=== PATIENT | female | born 1965 | race Caucasian/White ===

== ENCOUNTER 2020-12-29 15:28 | Emergency (ER) | payer SELFPAY ==
[2020-12-29 15:59] VITALS: BP 142/79; PULSE 80; RESP 24; TEMP 36.6; O2SAT 98; BMI 26.9
== END 2020-12-29 21:52 | disposition left against medical advice (07) ==
PROVIDERS: Emergency Provider Emergency Medicine
DX: R10.32 Left lower quadrant pain (principal)
CPT/HCPCS: 99281; 99282

== ENCOUNTER 2022-02-05 16:33 | Emergency (ER) | payer BC, SELFPAY ==
[2022-02-05 16:48] VITALS: BP 124/82; PULSE 112; O2SAT 98
[2022-02-05 16:52] VITALS: BP 105/88; PULSE 109; RESP 24; TEMP 38.1; O2SAT 99; BMI 22.9
--- NOTE | 2022-02-05 17:01 | ED_ITS ---
HPI - Nausea/Vomiting/Diarrhea General Chief complaint: Upper Respiratory Symptoms Stated complaint: N/V/D,CHILLS,FEVER PER EMS Time Seen by Provider: 02/05/22 16:46 Source: patient and EMS Mode of arrival: EMS Limitations: no limitations History of Present Illness HPI Narrative: 56 y/o female presents to the ER c/o body aches, nausea, vomiting, headaches and not feeling good for the last 1 day. She states she was around her daughter on [place] who was found to have COVID. Patient vaccinated for COVID but not boosted. She has minimal respiratory symptoms, just a mild dry cough. She reports severe nausea today and a few episodes of vomiting. No BM today but had loose stools yesterday. No abdominal pain. Intermittent fevers, last took tylenol this morning. MD elicited complaint: nausea, vomiting and other (bodyaches and headaches) Onset (ago): day(s) (1) Description of vomiting: food contents and bilious Description of diarrhea: loose Associated nausea: Yes Associated abdominal pain: No Location of pain: none Pain consistency: intermittent Severity: moderate Quality: aching Exacerbating factors: eating Relieving factors: none Context: sick contacts Associated symptoms: myalgias, cough, diaphoresis, fever/chills, headaches, loss of appetite, malaise, nausea/vomiting, weakness, anxiety and fatigue Related Data Previous Rx's Medication Instructions Recorded ibuprofen 600 mg tablet 600 mg PO Q8H PRN fever or pain 02/05/22 #20 tabs ondansetron 4 mg disintegrating 4 mg PO Q8H PRN nausea and 02/05/22 tablet vomiting 3 days #10 tabs Allergies Allergy/AdvReac Type Severity Reaction Status Date / Time latex Allergy Rash Verified 12/29/20 16:03 Review of Systems Review of Systems: Constitutional: + Fever, + Chills ENT/Mouth: No sore throat, No Rhinorrhea, No Swallowing Difficulty Eyes: No Eye Pain, No Swelling, No Redness Cardiovascular: No Chest Pain, No SOB, No Orthopnea, No Edema Respiratory: + Cough, No Sputum, No Wheezing, No dyspnea Gastrointestinal: + Nausea, +Vomiting, + Diarrhea, No abdominal Pain, No Hematochezia, No Melena Genitourinary: No Dysuria, No Urinary Frequency, No Hematuria Musculoskeletal: + joint pain, +Myalgias Skin: No Skin Lesions, No rash Neuro: +Weakness, No Numbness, No Dizziness, + Headache Psych: + Anxiety/Panic, No Depression Heme/Lymph: No Bruising, No Lymphadenopathy Gastrointestinal: Gastrointestinal: Reports nausea PMFSH Social History Social History Advance Directives: No Advance Directives Information Provided: No Physical Exam Vital Signs: Vital Signs: Last Vital Signs Temp 100.6 F H 02/05/22 16:52 Pulse 109 H 02/05/22 16:52 Resp 24 H 02/05/22 16:52 BP 105/88 02/05/22 16:52 Pulse Ox 99 02/05/22 16:52 O2 Del Method 02/05/22 16:52 BMI result Body Mass Index 22.9 Appearance: Alert. Oriented X3. No acute distress. Eyes: Pupils equal, round and reactive to light. ENT: Pharynx normal. Neck: Normal inspection. Neck supple. CVS: Normal heart rate and rhythm. Pulses normal. Respiratory: No respiratory distress. Breath sounds normal. Abdomen: Soft and nontender. +BS x4 Skin: Skin warm and dry. Normal skin color. Normal skin turgor. No rashes. Extremities: No lower extremity edema. Neuro: Oriented X 3. Nonfocal. Normal speech and cognition. Course Course Course Narrative: 56-year-old female presents to the ER for evaluation of nausea, vomiting, diarrhea, body aches, headache that started yesterday after known COVID exposure 2 days ago. She rib to the ER with a low-grade fever, tachycardic and slightly tachypneic but in no respiratory distress. Most likely driven by the fever. Last got antipyretics this morning. Will place an IV, give IV Toradol, IV fluids, check basic lab workup and PCR viral swab. Reevaluation(s) Reevaluation #1: Lab workup showing WBC 12.5, most likely reactive due to vomiting. Lab workup otherwise unremarkable. She did, 2 positive for COVID-19. She is feeling better after the Zofran. She is tolerating ice chips. No respiratory complaints at this time. Anticipate discharge home with supportive care. Reevaluation #2: Tolerating p.o.. Would like to go home. Stable for OK home. Return precau tions discussed. Medications Administered Discontinued Medications Generic Name Dose Route Start Last Admin Trade Name Freq PRN Reason Stop Dose Admin Acetaminophen 975 mg 02/05/22 18:07 02/05/22 18:24 Acetaminophen 325 Mg Tablet PO 02/05/22 18:08 975 mg ONCE ONE Administration Sodium Chloride 1,000 mls @ 999 mls/hr 02/05/22 16:45 02/05/22 17:21 Ns IVCONT 02/05/22 17:45 999 mls/hr .Q1H1M GORDON Administration Ketorolac Tromethamine 30 mg 02/05/22 16:50 02/05/22 17:16 Ketorolac Tromethamine 30 Mg/Ml Vial IVPUSH 02/05/22 16:51 30 mg ONCE ONE Administration Ondansetron HCl 4 mg 02/05/22 17:03 02/05/22 17:18 Ondansetron Odt 4 Mg Tab.Rapdis TRANSLINGU 02/05/22 17:04 4 mg ONCE ONE Administration Medical Decision Making Lab Data Result Diagrams: 02/05/22 17:08 02/05/22 17:08 Labs: Lab Results 02/05/22 02/05/22 02/05/22 Range/Units 17:08 17:08 17:10 WBC 12.5 H (4.8-10.8) X10*3/uL RBC 4.14 L (4.20-5.50) X10*6/uL Hgb 12.7 (12.0-16.0) g/dl Hct 38.1 (37.0-47.0) % MCV 92.0 (80.0-98.0) fL MCH 30.7 (27.0-33.0) pg MCHC 33.3 (31.0-35.0) g/dl RDW 12.6 (11.0-16.0) % Plt Count 265 (160-400) X10*3/uL MPV 9.7 (9.4-12.3) fL Immature Gran % (Auto) 0.4 (0.0-0.4) % Neut % (Auto) 90.6 H (45-73) % Lymph % (Auto) 3.3 L (20-40) % [place] % (Auto) 4.9 (2-11) % Eos % (Auto) 0.6 (0-4) % Baso % (Auto) 0.2 (0-2) % Lymph # (Auto) 0.4 L (1.2-4.9) X10*3/uL [place] # (Auto) 0.6 (0.1-1.2) X10*3/uL Eos # (Auto) 0.1 (0.0-0.4) X10*3/uL Baso # (Auto) 0.0 (0.0-0.2) X10*3/uL Abs Immat Gran (auto) 0.05 H (0.00-0.03) X10*3/uL Absolute Neuts (auto) 11.3 H (2.0-8.3) x10*3/uL Absolute Nucleated RBC 0.000 (0.0-0.012) X10*3/uL Nucleated RBC % (auto) 0.0 (0.0-0.2) /100WBC Smear Tech's Comments VERIFIED Sodium 137 (135-145) mmol/L Potassium 4.0 (3.3-5.1) mmol/L Chloride 103 (96-108) mmol/L Carbon Dioxide 26 (22-29) mmol/L Anion Gap 12 (12-20) BUN 9 (9-16) mg/dL Creatinine 0.76 (0.5-1.4) mg/dL Estim Creat Clear Calc 89.3 Estimated GFR > 60 Random Glucose 110 (60-115) mg/dL Calcium 9.8 (8.4-10.2) mg/dL Magnesium 1.6 (1.6-2.6) mg/dL Total Bilirubin 0.3 (0.0-1.0) mg/dL Direct Bilirubin < 0.2 (0.0-0.5) mg/dL AST 18 (5-31) U/L ALT 22 (0-31) U/L Alkaline Phosphatase 76 (39-117) U/L Total Protein 6.9 (6.5-8.0) g/dL Albumin 4.2 (3.5-5.0) g/dL Influenza Type A (PCR) NEGATIVE (Negative) Influenza Type B (PCR) NEGATIVE (Negative) RSV RNA Qual (PCR) NEGATIVE (Negative) SARS-CoV-2 RNA (RT-PCR) POSITIVE A (Negative) Discharge Plan Discharge Clinical Impression: COVID-19 Patient Disposition: Home, Self-Care Instructions: Covid-19 Viral Syndrome and Novel Coronavirus (ED) Hey/Ath Additional Instructions: You tested positive for COVID-19 today. Your lab work was otherwise largely unremarkable. Take the prescribed medications as directed, as needed for your symptoms. Make sure staying hydrated and drinking plenty fluids. Recommend Tylenol 975 mg every 6 hours around the clock for headaches and body aches. Take [id number] cold and flu medications as needed for your other symptoms. Follow-up with your doctor as needed. If you develop new or worsening symptoms call 911 or come back to the ER for further evaluation. Prescriptions: New ibuprofen 600 mg tablet 600 mg PO Q8H PRN (Reason: fever or pain) Qty: 20 0RF ondansetron 4 mg tablet,disintegrating 4 mg PO Q8H PRN (Reason: nausea and vomiting) 3 Days Qty: 10 0RF
[2022-02-05] MEDS: Ketorolac Tromethamine 30 MG/ML VIAL IVPUSH (17:16)
[2022-02-05] MEDS: Ondansetron ODT 4 MG TAB.RAPDIS TRANSLINGU (17:18)
[2022-02-05] MEDS: 0.9 % Sodium Chloride 1,000 ML 999 ML IVCONT (17:21)
[2022-02-05 17:23] LABS: Basophils Percent Auto 0.2 % (0-2); Eosinophils Absolute Auto 0.1 X10*3/uL (0.0-0.4); Eosinophils Percent Auto 0.6 % (0-4); Hematocrit 38.1 % (37.0-47.0); Hemoglobin 12.7 g/dl (12.0-16.0); Imm Gran Abs Auto 0.05 X10*3/uL (0.00-0.03); Imm Gran Pct Auto 0.4 % (0.0-0.4); Lymphocytes Absolute Auto 0.4 X10*3/uL (1.2-4.9); Lymphocytes Percent Auto 3.3 % (20-40); MANUAL DIFF FLAG SCAN; Mean Corpuscular HGB Conc 33.3 g/dl (31.0-35.0); Mean Corpuscular Hemoglobin 30.7 pg (27.0-33.0); Mean Platelet Volume 9.7 fL (9.4-12.3); Monocytes Absolute Auto 0.6 X10*3/uL (0.1-1.2); Monocytes Percent Auto 4.9 % (2-11); Neutrophils Absolute Auto 11.3 x10*3/uL (2.0-8.3); Neutrophils Percent Auto 90.6 % (45-73); Platelet Count 265 X10*3/uL (160-400); Red Blood Count 4.14 X10*6/uL (4.20-5.50); Red Cell Distribution Width 12.6 % (11.0-16.0); SCAN SMEAR FLAG 1; White Blood Count 12.5 X10*3/uL (4.8-10.8)
[2022-02-05 17:44] LABS: Alanine Aminotransferase 22 U/L (0-31); Albumin Level 4.2 g/dL (3.5-5.0); Alkaline Phosphatase 76 U/L (39-117); Anion Gap 12 (12-20); Aspartate Amino Transferase 18 U/L (5-31); Bilirubin Direct < 0.2 mg/dL (0.0-0.5); Bilirubin Total 0.3 mg/dL (0.0-1.0); Blood Urea Nitrogen 9 mg/dL (9-16); Calcium 9.8 mg/dL (8.4-10.2); Carbon Dioxide 26 mmol/L (22-29); Chloride 103 mmol/L (96-108); Creatinine Clr Calc Pharmacy 89.3; Estimated Glomerular Filt Rate > 60; Glucose Random 110 mg/dL (60-115); Magnesium 1.6 mg/dL (1.6-2.6); SLIDE REVIEW VERIFIED; Sodium 137 mmol/L (135-145); Total Protein 6.9 g/dL (6.5-8.0)
[2022-02-05 18:03] LABS: Influenza A PCR NEGATIVE (Negative); Influenza B PCR NEGATIVE (Negative); Resp Syncy Virus RNA Qual PCR NEGATIVE (Negative); SARS COV2 PCR INHOUSE POSITIVE (Negative)
[2022-02-05] MEDS: Acetaminophen 325 MG TABLET 975 MG PO (18:24)
[2022-02-05 18:35] VITALS: BP 114/58; PULSE 99; O2SAT 96
== END 2022-02-05 18:58 | disposition home or self-care (01) ==
PROVIDERS: Physician Assistant; Emergency Provider Internal Medicine
DX: U07.1 COVID-19 (principal); R50.9 Fever, unspecified; M79.10 Myalgia, unspecified site; R51.9 Headache, unspecified; R05.9 Cough, unspecified; Z79.899 Other long term (current) drug therapy
CPT/HCPCS: 0241U; 36415; 80048; 80076; 83735; 85025; 96361; 96374; 99284; J1885

== ENCOUNTER 2022-05-02 15:07 | Emergency (ER) | payer BC, SELFPAY ==
--- NOTE | ~2022-05-02 | MR_ITS ---
EXAMINATION: MR BRAIN WITHOUT CONTRAST CLINICAL INFORMATION: Right-sided weakness. COMPARISON: CT head from 05/02/2022. TECHNIQUE: MRI of the brain was obtained using routine sequences without contrast. FINDINGS: No focal restricted diffusion is demonstrated to suggest acute or subacute cerebral ischemia. No evidence of acute or chronic hemorrhagic products on heme-sensitive imaging. Scattered periventricular and deep white matter T2 FLAIR hyperintensities most commonly seen with underlying microangiopathy. Proportional prominence of the ventricles and sulcal spaces without evidence of obstructive hydrocephalus. No abnormal mass effect. No midline shift. Normal appearance of the pituitary gland. Normal positioning of the cerebellar tonsils. Normal arterial and venous vascular flow voids are present. Normal, homogeneous marrow signal. Mild mucosal thickening of the paranasal sinuses. No signal abnormalities within the mastoids. MR/MR head/brain wo con IMPRESSION: 1. No acute intracranial abnormalities. 2. Nonspecific white matter changes most commonly seen with underlying microangiopathy.
--- NOTE | ~2022-05-02 | CT_ITS ---
EXAMINATION: CT HEAD WITHOUT CONTRAST (STROKE PROTOCOL) CLINICAL INFORMATION: Stroke protocol. Right-sided deficits COMPARISON: None available. TECHNIQUE: Contiguous axial imaging was performed from the skull base to vertex without intravenous administration of contrast. This CT examination was performed using dose optimization techniques as appropriate, variously including the following: *Automated exposure control *Adjustment of mA and/or kV according to patient size (this includes techniques or standardized protocols for targeted exams where dose is matched to indication/reason for exam; i.e. extremities or head) *Use of iterative reconstruction technique DLP: 657 mGy-cm FINDINGS: Brain: There is no acute intra-axial, extra-axial bleed, mass or midline shift. There is no acute infarction evolution. No edema. The lateral ventricles are symmetrical in size and configuration without enlargement. Bone windows reveal no calvarial abnormality. There is no scalp soft tissue abnormality. There is minimal mucoperiosteal thickening bilateral ethmoid sinuses. Rest of the paranasal sinuses are clear. CT/CT head for stroke IMPRESSION: 1. No acute intracranial process seen. 2. Chronic bilateral ethmoid sinus inflammatory changes. This critical result was discussed with Dr. Ventura at 3.53 pm . on 05/02/2022. It was ascertained that the content and urgency of the report was understood at the time of direct communication.
--- NOTE | 2022-05-02 15:18 | ECG_ITS ---
Test Reason : CHEST PAIN Blood Pressure : / mmHG Vent. Rate : 070 BPM Atrial Rate : 070 BPM P-R Int : 150 ms QRS Dur : 106 ms QT Int : 408 ms P-R-T Axes : 061 033 057 degrees QTc Int : 440 ms Normal sinus rhythm Incomplete right bundle branch block Septal infarct , age undetermined Abnormal ECG No previous ECGs available Referred By: Generic ED Physician Electronically Signed By:SYLVIA ALONSO MD
[2022-05-02 15:21] VITALS: BP 130/70; BP 147/86; PULSE 74; PULSE 90; RESP 18; TEMP 36.7; O2SAT 98; O2SAT 99; BMI 24.3
[2022-05-02 15:27] LABS: Glucose, Whole Blood 120 mg/dL (60-115)
--- NOTE | 2022-05-02 15:31 | ED.NEUROSD ---
HPI - Neuro Symptoms/Deficit General Chief Complaint: Dizziness Stated Complaint: CP ALL DAY WORSE AFTER ARGUEMENT Time Seen by Provider: 05/02/22 15:28 Source: patient Mode of arrival: EMS History of Present Illness HPI Narrative: 57F with history hypertension but otherwise denies alcohol or drug use. She is unsure of why her coworkers called and according to nursing and EMS it was because they noticed she was having difficulty with word finding. Apparently started with some headache in the posterior head and associated dizziness. Related Data Previous Rx's Medication Instructions Recorded ibuprofen 600 mg tablet 600 mg PO Q8H PRN fever or pain 02/05/22 #20 tabs ondansetron 4 mg disintegrating 4 mg PO Q8H PRN nausea and 02/05/22 tablet vomiting 3 days #10 tabs Allergies Allergy/AdvReac Type Severity Reaction Status Date / Time bee pollen [bee stings] Allergy Hives Verified 05/02/22 15:31 Iodinated Contrast Media Allergy Hives Verified 05/02/22 15:31 [Contrast Dye] latex Allergy Rash Verified 12/29/20 16:03 Review of Systems Review of Systems: Pertinent positives and negatives as stated in HPI [facility] Past Medical History Source: nursing notes reviewed Social History Social History Advance Directives: No Advance Directives Information Provided: Yes Physical Exam Vital Signs: Vital Signs: Last Vital Signs Temp 98.0 F 05/02/22 15:21 Pulse 65 05/02/22 17:01 Resp 12 05/02/22 17:01 BP 143/78 H 05/02/22 17:01 Pulse Ox 100 05/02/22 17:01 O2 Del Method Room Air 05/02/22 17:01 BMI result Body Mass Index 24.3 VITAL SIGNS: Reviewed. GENERAL: Well developed, well nourished, in no acute distress. HEAD: Normocephalic/atraumatic EYES: PERRLA, EOMI LUNGS: Normal breath sounds. No adventitious sounds or accessory muscle use. SpO2<99> CARDIOVASCULAR: Regular rate and rhythm without noted murmurs, no JVD or lower extremity edema. ABDOMEN: Soft, non-tender, non-distended with bowel sounds. MUSCULOSKELETAL: No tenderness, deformities, or effusions noted on gross inspection. EXTREMITIES: No cyanosis, clubbing or edema. SKIN: Inspection of the skin reveals no rashes NEUROLOGIC: Alert and oriented x 3. Please see NIH scale Medical Decision Making Medical Decision Making MDM Narrative: 57-year-old female not on anticoagulation presents with concerning symptoms for possible bleed, 1536: Dr Scott contacted and agrees that if appropriate pt will get tPA. 1539: Informed by radiology that patient has a contrast allergy. 1545: Discussed with Dr. Scott that patient is allergic to IV contrast, has improvement in her speech pattern and will hold off on the tPA and tell MRI of brain is complete. 1550: I spoke with patient who stated that she does feel somewhat better, she is noted to be articulating much better with full sentences has movement in all 4 extremities but reports ?tingling?. 1715: I reviewed the official MRI read which is negative for evidence to suggest CVA, on re-evaluation of the patient she states that she has had complete resolution of her symptoms, is unsure of what happened and is now complaining headache with some neck pain and back pain. NIH-0 Patient was not noted to be hypertensive on arrival and so cannot speculate that this contributed to her symptoms, I do suspect that given the final endorsement headache and tingling from toes to shoulders that this may have been a complex migraine manifestation. Patient denies any episodes of anxiety or panic disorder and also states that she has never had a migraine like this. 1735: I discussed the case once again with Neurology, Dr. Scott, and updated him on patient's symptom resolution/MRI results and he states that the tingling is primarily migraine or seizure. But agrees with further outpatient workup. Patient was informed of all results and will be discharged home with strict instructions follow-up with her primary care provider for further workup. Differential Diagnosis Please see the discussion above Lab Data Please see the discussion above 05/02/22 15:38 05/02/22 15:38 Labs: Lab Results 05/02/22 05/02/22 05/02/22 Range/Units 15:24 15:36 15:38 WBC 8.6 (4.8-10.8) X10*3/uL RBC 4.09 L (4.20-5.50) X10*6/uL Hgb 12.5 (12.0-16.0) g/dl Hct 37.4 (37.0-47.0) % MCV 91.4 (80.0-98.0) fL MCH 30.6 (27.0-33.0) pg MCHC 33.4 (31.0-35.0) g/dl RDW 13.5 (11.0-16.0) % Plt Count 330 (160-400) X10*3/uL MPV 9.7 (9.4-12.3) fL Immature Gran % (Auto) 0.3 (0.0-0.4) % Neut % (Auto) 55.2 (45-73) % Lymph % (Auto) 37.1 (20-40) % [place] % (Auto) 5.8 (2-11) % Eos % (Auto) 1.3 (0-4) % Baso % (Auto) 0.3 (0-2) % Lymph # (Auto) 3.2 (1.2-4.9) X10*3/uL [place] # (Auto) 0.5 (0.1-1.2) X10*3/uL Eos # (Auto) 0.1 (0.0-0.4) X10*3/uL Baso # (Auto) 0.0 (0.0-0.2) X10*3/uL Abs Immat Gran (auto) 0.03 (0.00-0.03) X10*3/uL Absolute Neuts (auto) 4.8 (2.0-8.3) x10*3/uL Absolute Nucleated RBC 0.000 (0.0-0.012) X10*3/uL Nucleated RBC % (auto) 0.0 (0.0-0.2) /100WBC PT (10.0-13.1) SEC Whole Blood PT 12.7 (11.1-13.5) sec INR (0.9-1.1) Whole Blood INR 1.1 (0.9-1.1) APTT (26.0-36.4) SEC Sodium (135-145) mmol/L Potassium (3.3-5.1) mmol/L Chloride (96-108) mmol/L Carbon Dioxide (22-29) mmol/L Anion Gap (12-20) BUN (9-16) mg/dL Creatinine (0.5-1.4) mg/dL Estim Creat Clear Calc Estimated GFR POC Glucose 120 H (60-115) mg/dL Random Glucose (60-115) mg/dL Calcium (8.4-10.2) mg/dL Total Creatine Kinase (26-140) U/L Troponin I High Sens (<3.5-17.0) ng/L 05/02/22 05/02/22 05/02/22 Range/Units 15:38 15:38 15:38 WBC (4.8-10.8) X10*3/uL RBC (4.20-5.50) X10*6/uL Hgb (12.0-16.0) g/dl Hct (37.0-47.0) % MCV (80.0-98.0) fL MCH (27.0-33.0) pg MCHC (31.0-35.0) g/dl RDW (11.0-16.0) % Plt Count (160-400) X10*3/uL MPV (9.4-12.3) fL Immature Gran % (Auto) (0.0-0.4) % Neut % (Auto) (45-73) % Lymph % (Auto) (20-40) % [place] % (Auto) (2-11) % Eos % (Auto) (0-4) % Baso % (Auto) (0-2) % Lymph # (Auto) (1.2-4.9) X10*3/uL [place] # (Auto) (0.1-1.2) X10*3/uL Eos # (Auto) (0.0-0.4) X10*3/uL Baso # (Auto) (0.0-0.2) X10*3/uL Abs Immat Gran (auto) (0.00-0.03) X10*3/uL Absolute Neuts (auto) (2.0-8.3) x10*3/uL Absolute Nucleated RBC (0.0-0.012) X10*3/uL Nucleated RBC % (auto) (0.0-0.2) /100WBC PT 12.0 (10.0-13.1) SEC Whole Blood PT (11.1-13.5) sec INR 1.0 (0.9-1.1) Whole Blood INR (0.9-1.1) APTT 26.4 (26.0-36.4) SEC Sodium 138 (135-145) mmol/L Potassium 4.5 (3.3-5.1) mmol/L Chloride 107 (96-108) mmol/L Carbon Dioxide 23 (22-29) mmol/L Anion Gap 13 (12-20) BUN 18 H (9-16) mg/dL Creatinine 0.76 (0.5-1.4) mg/dL Estim Creat Clear Calc 82.4 Estimated GFR > 60 POC Glucose (60-115) mg/dL Random Glucose 109 (60-115) mg/dL Calcium 9.6 (8.4-10.2) mg/dL Total Creatine Kinase 67 (26-140) U/L Troponin I High Sens < 3.5 (<3.5-17.0) ng/L Independent Interpretation I performed an independent interpretation of an: EKG Interpretation: Normal sinus rhythm, HR -70, no STEMI, DE/QRS/QTC is within normal limits. Radiology Impression Radiologist Impression: My interpretation is in agreement with radiology's impression of the imaging studies. Chronic Conditions Patient?s care impacted by: Hypertension NIH Stroke Scale Internal: Initial- Upon Arrival Level of Consciousness: Alert Level of Consciousness Questions: Answers both questions correctly Level of Consciousness Commands: Performs both tasks correctly Best Gaze: Normal Visual: No visual loss Facial Palsy: Minor paralyis Motor Arm (Right): Some effort against gravity Motor Arm (Left): No drift Motor Leg (Right): Some effort against gravity Motor Leg (Left): No drift Limb Ataxia: Absent Sensory: Normal Best Language: No aphasia Dysarthia: Normal Extinction and Inattention: No abnormality Score: 5 Critical Care Time Critical Care Time Critical Care Time: Yes Total Critical Care Time: 30 Attestation: I personally attest to this time spent taking care of the patient. Discharge Plan Discharge Clinical Impression: Headache, migraine Patient Disposition: Home, Self-Care Instructions: Migraine Headache (ED) Additional Instructions: 1. Resume all home medications as prescribed. 2. Follow-up with your primary care provider and further discuss Neurology referral. Return to the ER for any worsening symptoms. Prescriptions: No Action ibuprofen 600 mg tablet 600 mg PO Q8H PRN (Reason: fever or pain) Qty: 20 0RF ondansetron 4 mg tablet,disintegrating 4 mg PO Q8H PRN (Reason: nausea and vomiting) 3 Days Qty: 10 0RF Referrals: Hilario Mccormack MD [Primary Care Provider] - (Worked up for possible stroke that was negative and then symptoms of tingling from toes to shoulder with posterior headache Dr Scott (neurology) suggests w/u for possible complex migraine and less likely seizures.)
[2022-05-02 15:40] LABS: Prothrombin Time Whole Bld POC 12.7 sec (11.1-13.5); ~PT, ~INR - Anti Coag Clinic 1.1 (0.9-1.1)
[2022-05-02 15:44] LABS: MANUAL DIFF FLAG NO
[2022-05-02 15:46] LABS: Basophils Percent Auto 0.3 % (0-2); Eosinophils Absolute Auto 0.1 X10*3/uL (0.0-0.4); Eosinophils Percent Auto 1.3 % (0-4); Hematocrit 37.4 % (37.0-47.0); Hemoglobin 12.5 g/dl (12.0-16.0); Imm Gran Abs Auto 0.03 X10*3/uL (0.00-0.03); Imm Gran Pct Auto 0.3 % (0.0-0.4); Lymphocytes Absolute Auto 3.2 X10*3/uL (1.2-4.9); Lymphocytes Percent Auto 37.1 % (20-40); Mean Corpuscular HGB Conc 33.4 g/dl (31.0-35.0); Mean Corpuscular Hemoglobin 30.6 pg (27.0-33.0); Mean Corpuscular Volume 91.4 fL (80.0-98.0); Mean Platelet Volume 9.7 fL (9.4-12.3); Monocytes Absolute Auto 0.5 X10*3/uL (0.1-1.2); Monocytes Percent Auto 5.8 % (2-11); Neutrophils Absolute Auto 4.8 x10*3/uL (2.0-8.3); Neutrophils Percent Auto 55.2 % (45-73); Platelet Count 330 X10*3/uL (160-400); Red Blood Count 4.09 X10*6/uL (4.20-5.50); Red Cell Distribution Width 13.5 % (11.0-16.0); White Blood Count 8.6 X10*3/uL (4.8-10.8)
[2022-05-02 15:54] LABS: Partial Thromboplastin Time 26.4 SEC (26.0-36.4)
[2022-05-02 15:58] LABS: Stroke Lab Use COMPLETE
[2022-05-02 16:12] LABS: Anion Gap 13 (12-20); Blood Urea Nitrogen 18 mg/dL (9-16); Calcium 9.6 mg/dL (8.4-10.2); Carbon Dioxide 23 mmol/L (22-29); Chloride 107 mmol/L (96-108); Creatinine Clr Calc Pharmacy 82.4; Estimated Glomerular Filt Rate > 60; Glucose Random 109 mg/dL (60-115); Potassium 4.5 mmol/L (3.3-5.1); Sodium 138 mmol/L (135-145)
[2022-05-02 16:14] LABS: Troponin-I High Sensitivity < 3.5 ng/L (<3.5-17.0)
[2022-05-02 17:01] VITALS: BP 143/78; PULSE 65; RESP 12; O2SAT 100
== END 2022-05-02 18:04 | disposition home or self-care (01) ==
PROVIDERS: Emergency Provider Student in an Organized Health Care Education/Training Program; PCP Internal Medicine
DX: G43.909 Migraine, unspecified, not intractable, without status migrainosus (principal); R20.2 Paresthesia of skin
CPT/HCPCS: 36415; 70450; 70551; 80048; 82550; 82947; 84484; 85025; 85610; 85730; 93005; 99284; 99285